=== PATIENT | male | born 1945 | race Caucasian/White ===

== ENCOUNTER 2017-04-08 17:10 | Emergency (ER) | payer MEDICARE, BC ==
[~2017-04-08] VITALS: Ht 180.3 cm; Wt 98.7 kg
[~2017-04-08 17:10] MED LIST: ADV50250 INH; ALB0.5UD IH; ALBU8.5H8 IH; CARV-49 PO; ESOM40CA30 PO; MONT10TA24 PO; SACU1TAB PO; SIMV20TA PO
[2017-04-08 17:56] LABS: BASOPHILS # (AUTO) 0.1 X10'3 (0-0.2); BASOPHILS % (AUTO) 0.8 % (0-1); EOSINOPHILS % (AUTO) 0.5 % (0-6); HEMATOCRIT 42.5 % (42.0-52.0); HEMOGLOBIN 14.4 g/dl (14.0-17.9); LYMPHOCYTES # (AUTO) 0.8 X10'3 (1.1-4.8); MEAN CORPUSCULAR HEMOGLOBIN 32.2 PG (27.0-31.0); MEAN CORPUSCULAR HGB CONC 33.9 % (33.0-36.5); MEAN CORPUSCULAR VOLUME 94.9 FL (78-98); MEAN PLATELET VOLUME 7.2 FL (7.4-10.4); MONOCYTES % (AUTO) 12.3 % (2-12); NEUTROPHILS % (AUTO) 76.4 % (42-75); PLATELET COUNT 216 X10'3 (140-440); RED BLOOD COUNT 4.48 X10'6 (4.70-6.10); RED CELL DISTRIBUTION WIDTH 13.7 % (11.5-14.5); WHITE BLOOD COUNT 7.9 X10'3 (4.5-11.0)
[2017-04-08 18:05] LABS: PARTIAL THROMBOPLASTIN TIME 27 SECONDS (22-32); PROTHROMBIN TIME 10.2 SECONDS (9.0-12.0)
[2017-04-08 18:10] LABS: ALANINE AMINOTRANSFERASE 30 U/L (12-78); ALBUMIN 3.7 G/DL (3.4-5.0); ALBUMIN/GLOBULIN RATIO 1.1 (1.1-1.5); ALKALINE PHOSPHATASE 114 IU/L (46-116); ANION GAP 9 (8-16); ASPARTATE AMINO TRANSFERASE 23 U/L (10-37); BILIRUBIN,TOTAL 0.7 MG/DL (0.1-1.0); BLOOD UREA NITROGEN 14 MG/DL (7-18); BUN/CREATININE RATIO 11.8 (5.4-32.0); CALCIUM 8.7 MG/DL (8.5-10.1); CHLORIDE 104 MMOL/L (99-107); CREATININE 1.19 MG/DL (0.60-1.10); GLUCOSE 100 MG/DL (70-104); POTASSIUM 4.3 MMOL/L (3.5-5.1); SODIUM 142 MMOL/L (135-145); TOTAL CARBON DIOXIDE 28.9 MMOL/L (24-32); TOTAL PROTEIN 7.1 G/DL (6.4-8.2); eGFR 60 ML/MIN
[2017-04-08] MEDS ORDERED: levoFLOXACIN 250mg tablet PO ONE (18:15)
[2017-04-08] MEDS ORDERED: predniSONE 20 mg tablet PO ONE (18:15)
[2017-04-08] MEDS ORDERED: ipratropium/albuterol 3ml nebule NEB ONE (18:15)
[2017-04-08] MEDS ORDERED: albuterol 2.5 MG/3 ML nebule NEB ONE (18:15)
[2017-04-08 18:30] LABS: MAGNESIUM 1.6 MG/DL (1.5-2.4)
[2017-04-08] MEDS ORDERED: LEVO500T89 PO (18:38)
[2017-04-08] MEDS ORDERED: ALB0.5UD IH (18:45)
[2017-04-08 18:58] VITALS: BP 129/74
== END 2017-04-08 18:50 | disposition home or self-care (01) ==
LOC: ER 17:12
DX: J44.1 Chronic obstructive pulmonary disease with (acute) exacerbation (principal); I50.9 Heart failure, unspecified; Z95.0 Presence of cardiac pacemaker; Z88.2 Allergy status to sulfonamides; Z88.1 Allergy status to other antibiotic agents; Z91.030 Bee allergy status
CPT/HCPCS: 36415; 71010; 80053; 83735; 83880; 84484; 85025; 85610; 85730; 93005; 94640; 94760; 99285; J7512; J7030

== ENCOUNTER 2018-11-10 09:48 | Inpatient (IN) | payer MEDICARE, BC ==
[~2018-11-10] VITALS: Ht 182.9 cm; Wt 101.8 kg
[~2018-11-10 09:48] MED LIST changes: +ATOR40TA7 PO; -ESOM40CA30 PO; +ESOM40CA49 PO; +GLUC-212 PO; -SIMV20TA PO
[2018-11-10] MEDS ORDERED: albuterol 2.5 MG/3 ML nebule NEB ONE (09:55)
[2018-11-10] MEDS ORDERED: ipratropium/albuterol 3ml nebule NEB ONE (09:55)
[2018-11-10] MEDS ORDERED: methylPREDNISolone sod succ 125mg/2ml vial IV ONE ×2 (09:55→12:30)
[2018-11-10] MEDS ORDERED: piperacillin/tazo 3.375gm/50ml 50 ML IV ONE (10:10)
[2018-11-10 10:42] LABS: BASOPHILS % (AUTO) 0.2 % (0-1); EOSINOPHILS % (AUTO) 0.1 % (0-6); HEMATOCRIT 40.1 % (42.0-52.0); HEMOGLOBIN 13.4 g/dl (14.0-17.9); LYMPHOCYTES # (AUTO) 0.4 X10'3 (1.1-4.8); LYMPHOCYTES % (AUTO) 4.7 % (21-51); MEAN CORPUSCULAR HEMOGLOBIN 31.6 PG (27.0-31.0); MEAN CORPUSCULAR HGB CONC 33.4 g/dL (33.0-36.5); MEAN CORPUSCULAR VOLUME 94.4 FL (78-98); MEAN PLATELET VOLUME 7.4 FL (7.4-10.4); MONOCYTES # (AUTO) 0.6 X10'3 (0-0.9); MONOCYTES % (AUTO) 6.9 % (2-12); NEUTROPHILS # (AUTO) 8.3 X10'3 (1.8-7.7); NEUTROPHILS % (AUTO) 88.1 % (42-75); PLATELET COUNT 267 X10'3 (140-440); RED BLOOD COUNT 4.25 X10'6 (4.70-6.10); RED CELL DISTRIBUTION WIDTH 12.8 % (11.5-14.5); WHITE BLOOD COUNT 9.4 X10'3 (4.5-11.0)
[2018-11-10 10:50] LABS: PARTIAL THROMBOPLASTIN TIME 25 SECONDS (22-32)
[2018-11-10 11:13] LABS: ALANINE AMINOTRANSFERASE 16 U/L (12-78); ALBUMIN 3.1 G/DL (3.4-5.0); ALBUMIN/GLOBULIN RATIO 0.9 (1.1-1.5); ALKALINE PHOSPHATASE 67 IU/L (46-116); ANION GAP 11 (8-16); ASPARTATE AMINO TRANSFERASE 11 U/L (10-37); BILIRUBIN,TOTAL 0.6 MG/DL (0.1-1.0); BLOOD UREA NITROGEN 21 MG/DL (7-18); BUN/CREATININE RATIO 14.9 (5.4-32.0); CALCIUM 8.8 MG/DL (8.5-10.1); CHLORIDE 108 MMOL/L (99-107); CREATININE 1.41 MG/DL (0.60-1.10); GLUCOSE 121 MG/DL (70-104); MAGNESIUM 1.4 MG/DL (1.5-2.4); POTASSIUM 4.1 MMOL/L (3.5-5.1); SODIUM 143 MMOL/L (135-145); TOTAL CARBON DIOXIDE 24.4 MMOL/L (24-32); TOTAL PROTEIN 6.4 G/DL (6.4-8.2); eGFR 49 ML/MIN
[2018-11-10] MEDS ORDERED: metoclopramide 5 mg/ml inj IV PRN (11:35)
[2018-11-10] MEDS ORDERED: potassium CL 10mEq/100ml bag 100 ML IV PRN ×2 (11:35)
[2018-11-10] MEDS ORDERED: mag hydrox/Alum hydrox/simeth 30ml oral suspension PO PRN (11:35)
[2018-11-10] MEDS ORDERED: ipratropium/albuterol 3ml nebule NEB PRN (11:35)
[2018-11-10] MEDS ORDERED: magnesium 4gm in 100ml NS 100 ML IV PRN (11:35)
[2018-11-10] MEDS ORDERED: magnesium 2GM in 50ml NS 50 ML IV PRN (11:35)
[2018-11-10] MEDS ORDERED: ondansetron/PF 4mg/2ml inj IV PRN (11:35)
[2018-11-10] MEDS ORDERED: magnesium hydroxide 30ml (MOM) UD suspension PO PRN (11:35)
[2018-11-10] MEDS ORDERED: acetaminophen 325mg tablet PO PRN ×2 (11:35)
[2018-11-10] MEDS ORDERED: potassium Cl 20 mEq SR tablet PO PRN ×2 (11:35)
[2018-11-10] MEDS ORDERED: bisacodyl 10mg suppository rectal RC PRN (11:35)
[2018-11-10] MEDS ORDERED: CARV-50 PO (12:36)
[2018-11-10] MEDS ORDERED: CYAN-51 PO (12:39)
[2018-11-10] MEDS ORDERED: SILD100T PO (12:39)
[2018-11-10] MEDS ORDERED: ASPI-1265 PO (12:39)
[2018-11-10] MEDS ORDERED: CHOL100044 PO (12:39)
[2018-11-10] MEDS ORDERED: TIOT18CA3 INH (12:39)
[2018-11-10 13:10] VITALS: BP 94/47
[2018-11-10] MEDS: normal saline 1000ml 1,000 ML IV SCH ×2 (13:53→21:32)
[2018-11-10] MEDS ORDERED: methylPREDNISolone sod succ 125mg/2ml vial IV SCH ×2 (14:00→18:30)
[2018-11-10] MEDS: ipratropium/albuterol 3ml nebule NEB SCH ×3 (14:16→22:20)
[2018-11-10] MEDS: piperacillin/tazo 3.375gm/50ml 50 ML IV SCH ×2 (16:37→23:33)
[2018-11-10] MEDS: magnesium Cl slow-release 64mg tablet PO PRN ×2 (17:53→22:08)
[2018-11-10] MEDS: HYDROcodone/acetaminophen 5mg/325mg tablet PO PRN (17:54)
--- NOTE | 2018-11-10 18:00 | NUR ---
Problems reprioritized. Patient report given, questions answered & plan of care reviewed with
[2018-11-10 18:50] VITALS: BP 98/47
[2018-11-10] MEDS: sacubitril/valsartan 24mg-26mg tablet PO SCH (20:00)
[2018-11-10] MEDS: methylPREDNISolone sod succ/PF 40mg inj. IV SCH (20:11)
[2018-11-10] MEDS: heparin, porcine 5000 units/ml vial SQ SCH (20:12)
[2018-11-10] MEDS ORDERED: temazepam 15mg capsule PO PRN (21:00)
[2018-11-10] MEDS: carVEDilol 12.5mg tablet PO SCH (21:00)
[2018-11-10] MEDS: atorvastatin 20mg tablet PO SCH (22:08)
[2018-11-10] MEDS: montelukast 10mg tablet PO SCH (22:08)
[2018-11-10] MEDS ORDERED: furosemide 40mg/4ml inj IV ONE (22:45)
[2018-11-10 23:11] LABS: ABG BASE EXCESS -0.5 mmol/L (-2.0-3.0); ABG HCO3 24.4 mmol/L (22.0-26.0); ABG OXYGEN SATURATION 93.3 % (95-98); ABG PCO2 (T) 41.3 mmHg (35.0-45.0); ABG PO2 (T) 68.7 mmHg (83-108); ALLEN'S TEST Positive; FCOHb 0.4 % (0.5-1.5); FLOW 4 L/min; FMetHb 0.1 % (0.3-1.12); FO2Hb 92.8 % (94-100); RESPIRATORY RATE (OBSERVED) 18 b/min; TOTAL HEMOGLOBIN 12.9 G/dl (14.0-18.0)
[2018-11-11] VITALS: BP 113/52
[2018-11-11] MEDS: methylPREDNISolone sod succ/PF 40mg inj. IV SCH ×4 (02:45→21:04)
[2018-11-11 04:57] LABS: MEAN PLATELET VOLUME 7.4 FL (7.4-10.4)
[2018-11-11 05:00] LABS: HEMOGLOBIN 12.2 g/dl (14.0-17.9); MEAN CORPUSCULAR HEMOGLOBIN 31.6 PG (27.0-31.0); MEAN CORPUSCULAR HGB CONC 33.8 g/dL (33.0-36.5); MEAN CORPUSCULAR VOLUME 93.5 FL (78-98); PLATELET COUNT 246 X10'3 (140-440); RED BLOOD COUNT 3.85 X10'6 (4.70-6.10); WHITE BLOOD COUNT 11.8 X10'3 (4.5-11.0)
[2018-11-11 05:14] LABS: ALANINE AMINOTRANSFERASE 16 U/L (12-78); ALBUMIN 2.4 G/DL (3.4-5.0); ALBUMIN/GLOBULIN RATIO 0.7 (1.1-1.5); ALKALINE PHOSPHATASE 38 IU/L (46-116); ANION GAP 9 (8-16); ASPARTATE AMINO TRANSFERASE 8 U/L (10-37); BILIRUBIN,TOTAL 0.6 MG/DL (0.1-1.0); BLOOD UREA NITROGEN 30 MG/DL (7-18); BUN/CREATININE RATIO 17.4 (5.4-32.0); CALCIUM 8.2 MG/DL (8.5-10.1); CHLORIDE 104 MMOL/L (99-107); CREATININE 1.72 MG/DL (0.60-1.10); GLUCOSE 127 MG/DL (70-104); MAGNESIUM 1.4 MG/DL (1.5-2.4); POTASSIUM 4.9 MMOL/L (3.5-5.1); SODIUM 140 MMOL/L (135-145); TOTAL PROTEIN 5.9 G/DL (6.4-8.2); eGFR 39 ML/MIN
[2018-11-11 06:42] LABS: TOTAL CELLS COUNTED 100
[2018-11-11 06:43] LABS: PLATELET ESTIMATE NORMAL
--- NOTE | 2018-11-11 06:43 | NUR ---
Patient in room RBIGID 350. I have received report from Baldev CHASE and had the opportunity to ask questions and assume patient care.
[2018-11-11 06:44] LABS: TOXIC VACUOLATION FEW
--- NOTE | 2018-11-11 06:44 | NUR ---
Problems reprioritized. Patient report given, questions answered & plan of care reviewed with PEG. Addendum: 11/11/18 at 0644 by Mg Pablo RN Amended: Links added.
[2018-11-11] MEDS: ipratropium/albuterol 3ml nebule NEB SCH ×5 (07:13→23:06)
[2018-11-11 07:44] VITALS: BP 123/68
[2018-11-11] MEDS: K and/or MAG REPLACEMENT MC SCH (08:00)
[2018-11-11] MEDS: normal saline 1000ml 1,000 ML IV SCH (08:33)
[2018-11-11] MEDS: pantoprazole 40mg Tablet.DR PO SCH (08:34)
[2018-11-11] MEDS: aspirin 81mg tab.chew PO SCH (08:34)
[2018-11-11] MEDS: carvedilol 6.25mg tablet PO SCH (08:34)
[2018-11-11] MEDS: heparin, porcine 5000 units/ml vial SQ SCH ×2 (08:37→21:04)
[2018-11-11] MEDS: piperacillin/tazo 3.375gm/50ml 50 ML IV SCH ×2 (09:13→16:10)
[2018-11-11] MEDS ORDERED: furosemide 20 MG/2 ML vial IV ONE (12:05)
[2018-11-11] MEDS: sacubitril/valsartan 24mg-26mg tablet PO SCH ×2 (12:34→21:05)
[2018-11-11] MEDS: magnesium Cl slow-release 64mg tablet PO PRN (16:08)
--- NOTE | 2018-11-11 18:30 | NUR ---
shift change report given by RENA Valdez; pt in bed with no c/o's or requests offered at this time
[2018-11-11 19:30] VITALS: BP 103/58
[2018-11-11] MEDS: lactobacillus rhamnosus 10,000 MMU CELLS/CAPSULE PO SCH (21:03)
[2018-11-11] MEDS: montelukast 10mg tablet PO SCH (21:03)
[2018-11-11] MEDS: atorvastatin 20mg tablet PO SCH (21:03)
[2018-11-11] MEDS: HYDROcodone/acetaminophen 5mg/325mg tablet PO PRN (21:37)
[2018-11-11 23:00] VITALS: BP 97/62
[2018-11-11] MEDS: carVEDilol 12.5mg tablet PO SCH (23:00)
[2018-11-12] MEDS: piperacillin/tazo 3.375gm/50ml 50 ML IV SCH ×2 (00:38→08:47)
[2018-11-12] MEDS: methylPREDNISolone sod succ/PF 40mg inj. IV SCH ×2 (02:47→08:45)
[2018-11-12 04:59] LABS: BASOPHILS % (AUTO) 0.1 % (0-1); EOSINOPHILS % (AUTO) 0.2 % (0-6); HEMATOCRIT 36.1 % (42.0-52.0); HEMOGLOBIN 11.9 g/dl (14.0-17.9); LYMPHOCYTES # (AUTO) 0.5 X10'3 (1.1-4.8); MEAN CORPUSCULAR VOLUME 93.9 FL (78-98); MONOCYTES # (AUTO) 0.7 X10'3 (0-0.9); MONOCYTES % (AUTO) 4.4 % (2-12); NEUTROPHILS # (AUTO) 15.6 X10'3 (1.8-7.7); NEUTROPHILS % (AUTO) 92.3 % (42-75); PLATELET COUNT 266 X10'3 (140-440); RED BLOOD COUNT 3.84 X10'6 (4.70-6.10); RED CELL DISTRIBUTION WIDTH 13.3 % (11.5-14.5); WHITE BLOOD COUNT 16.9 X10'3 (4.5-11.0)
[2018-11-12 05:19] LABS: ALANINE AMINOTRANSFERASE 16 U/L (12-78); ALBUMIN 2.2 G/DL (3.4-5.0); ALBUMIN/GLOBULIN RATIO 0.6 (1.1-1.5); ALKALINE PHOSPHATASE 47 IU/L (46-116); ANION GAP 9 (8-16); ASPARTATE AMINO TRANSFERASE 11 U/L (10-37); BILIRUBIN,TOTAL 0.4 MG/DL (0.1-1.0); BLOOD UREA NITROGEN 41 MG/DL (7-18); BUN/CREATININE RATIO 26.1 (5.4-32.0); CALCIUM 8.4 MG/DL (8.5-10.1); CHLORIDE 103 MMOL/L (99-107); CREATININE 1.57 MG/DL (0.60-1.10); GLUCOSE 128 MG/DL (70-104); MAGNESIUM 1.8 MG/DL (1.5-2.4); PHOSPHORUS 3.3 MG/DL (2.3-4.5); SODIUM 140 MMOL/L (135-145); TOTAL CARBON DIOXIDE 28.2 MMOL/L (24-32); TOTAL PROTEIN 6.2 G/DL (6.4-8.2); eGFR 44 ML/MIN
[2018-11-12 05:56] LABS: PLATELET ESTIMATE NORMAL; TOTAL CELLS COUNTED 100
--- NOTE | 2018-11-12 06:45 | NUR ---
checked q1hr; slept at intervals with no acute distress; pt becomes SOB on exertion or when having a long conversation; no further changes from earlier notes; shift change report given to RENA Valdez
[2018-11-12 07:00] VITALS: BP 104/65
--- NOTE | 2018-11-12 07:01 | NUR ---
Patient in room [facility]IGID 350. I have received report from Pat RN and had the opportunity to ask questions and assume patient care.
[2018-11-12] MEDS: ipratropium/albuterol 3ml nebule NEB SCH ×5 (07:23→23:00)
--- NOTE | 2018-11-12 07:53 | NUR ---
Received a phone call from microbiology lab reporting positive blood culture left hand shows haemophilus influenzae same as respiratory culture. Jose Rodriguez notified and Dr. Buck notified via paging system
[2018-11-12] MEDS: K and/or MAG REPLACEMENT MC SCH (08:00)
[2018-11-12] MEDS: pantoprazole 40mg Tablet.DR PO SCH (08:52)
[2018-11-12] MEDS: aspirin 81mg tab.chew PO SCH (08:56)
[2018-11-12] MEDS: carvedilol 6.25mg tablet PO SCH (08:56)
[2018-11-12] MEDS: lactobacillus rhamnosus 10,000 MMU CELLS/CAPSULE PO SCH ×2 (08:56→20:56)
[2018-11-12] MEDS: heparin, porcine 5000 units/ml vial SQ SCH ×2 (08:57→20:57)
[2018-11-12] MEDS: furosemide 20 MG/2 ML vial IV SCH (10:53)
[2018-11-12 11:00] VITALS: BP 94/52
[2018-11-12 12:35] VITALS: BP 105/56
[2018-11-12] MEDS: sacubitril/valsartan 24mg-26mg tablet PO SCH ×2 (12:46→20:55)
[2018-11-12] MEDS: CefTRIAXone 2gm/D5W 50ml 50 ML IV SCH (12:46)
--- NOTE | 2018-11-12 18:52 | NUR ---
Problems reprioritized. Patient report given, questions answered & plan of care reviewed with Monserrat CHASE.
--- NOTE | 2018-11-12 18:53 | NUR ---
Patient in room [facility] 350. I have received report from PEG CHASE and had the opportunity to ask questions and assume patient care.
[2018-11-12 20:00] VITALS: BP 126/68
[2018-11-12] MEDS: carVEDilol 12.5mg tablet PO SCH (20:56)
[2018-11-12] MEDS: montelukast 10mg tablet PO SCH (20:56)
[2018-11-12] MEDS: atorvastatin 20mg tablet PO SCH (20:56)
[2018-11-13] VITALS: BP 147/73
[2018-11-13 05:17] LABS: BASOPHILS % (AUTO) 0.1 % (0-1); EOSINOPHILS % (AUTO) 0 % (0-6); HEMATOCRIT 35.3 % (42.0-52.0); HEMOGLOBIN 11.7 g/dl (14.0-17.9); LYMPHOCYTES # (AUTO) 0.5 X10'3 (1.1-4.8); LYMPHOCYTES % (AUTO) 2.7 % (21-51); MEAN CORPUSCULAR HEMOGLOBIN 31.2 PG (27.0-31.0); MEAN CORPUSCULAR HGB CONC 33.1 g/dL (33.0-36.5); MEAN CORPUSCULAR VOLUME 94.5 FL (78-98); MONOCYTES # (AUTO) 0.8 X10'3 (0-0.9); MONOCYTES % (AUTO) 4.5 % (2-12); NEUTROPHILS # (AUTO) 17.1 X10'3 (1.8-7.7); NEUTROPHILS % (AUTO) 92.7 % (42-75); PLATELET COUNT 266 X10'3 (140-440); RED BLOOD COUNT 3.73 X10'6 (4.70-6.10); RED CELL DISTRIBUTION WIDTH 13.4 % (11.5-14.5); WHITE BLOOD COUNT 18.4 X10'3 (4.5-11.0)
[2018-11-13 05:32] LABS: ALANINE AMINOTRANSFERASE 17 U/L (12-78); ALBUMIN/GLOBULIN RATIO 0.5 (1.1-1.5); ALKALINE PHOSPHATASE 48 IU/L (46-116); ANION GAP 7 (8-16); ASPARTATE AMINO TRANSFERASE 8 U/L (10-37); BILIRUBIN,TOTAL 0.2 MG/DL (0.1-1.0); BLOOD UREA NITROGEN 39 MG/DL (7-18); BUN/CREATININE RATIO 28.1 (5.4-32.0); CALCIUM 8.6 MG/DL (8.5-10.1); CHLORIDE 106 MMOL/L (99-107); CREATININE 1.39 MG/DL (0.60-1.10); GLUCOSE 145 MG/DL (70-104); MAGNESIUM 2.2 MG/DL (1.5-2.4); PHOSPHORUS 2.5 MG/DL (2.3-4.5); POTASSIUM 4.1 MMOL/L (3.5-5.1); SODIUM 141 MMOL/L (135-145); TOTAL CARBON DIOXIDE 27.8 MMOL/L (24-32); eGFR 50 ML/MIN
--- NOTE | 2018-11-13 06:18 | NUR ---
Problems reprioritized. Patient report given, questions answered & plan of care reviewed with ARLETTE CHASE.
--- NOTE | 2018-11-13 06:20 | NUR ---
Patient in room [facility] 350. I have received report from RENA German and had the opportunity to ask questions and assume patient care.
[2018-11-13 07:24] VITALS: BP 127/59
[2018-11-13 07:24] LABS: PLATELET ESTIMATE NORMAL; TOTAL CELLS COUNTED 100
[2018-11-13] MEDS: ipratropium/albuterol 3ml nebule NEB SCH ×5 (07:57→23:14)
[2018-11-13] MEDS: K and/or MAG REPLACEMENT MC SCH (08:00)
[2018-11-13] MEDS: furosemide 20 MG/2 ML vial IV SCH (08:10)
[2018-11-13] MEDS: CefTRIAXone 2gm/D5W 50ml 50 ML IV SCH (08:11)
[2018-11-13] MEDS: carvedilol 6.25mg tablet PO SCH (08:12)
[2018-11-13] MEDS: aspirin 81mg tab.chew PO SCH (08:12)
[2018-11-13] MEDS: pantoprazole 40mg Tablet.DR PO SCH (08:12)
[2018-11-13] MEDS: lactobacillus rhamnosus 10,000 MMU CELLS/CAPSULE PO SCH ×2 (08:12→20:30)
[2018-11-13] MEDS: heparin, porcine 5000 units/ml vial SQ SCH ×2 (08:15→20:30)
[2018-11-13 11:38] VITALS: BP 131/60
[2018-11-13] MEDS ORDERED: sacubitril/valsartan 24mg-26mg tablet PO ONE (11:50)
--- NOTE | 2018-11-13 18:00 | NUR ---
Problems reprioritized. Patient report given, questions answered & plan of care reviewed with RENA German.
--- NOTE | 2018-11-13 18:30 | NUR ---
Patient in room [facility] 350. I have received report from ARLETTE CHASE and had the opportunity to ask questions and assume patient care.
[2018-11-13 20:00] VITALS: BP 112/67
[2018-11-13] MEDS: carVEDilol 12.5mg tablet PO SCH (20:30)
[2018-11-13] MEDS: montelukast 10mg tablet PO SCH (20:30)
[2018-11-13] MEDS: atorvastatin 20mg tablet PO SCH (20:30)
[2018-11-13] MEDS: sacubitril/valsartan 24mg-26mg tablet PO SCH (23:40)
[2018-11-14] VITALS: BP 127/65
[2018-11-14 05:54] LABS: BASOPHILS % (AUTO) 0 % (0-1); MEAN CORPUSCULAR HEMOGLOBIN 31.2 PG (27.0-31.0); MEAN PLATELET VOLUME 8.1 FL (7.4-10.4)
[2018-11-14 05:55] LABS: EOSINOPHILS % (AUTO) 0 % (0-6); HEMATOCRIT 34.9 % (42.0-52.0); HEMOGLOBIN 11.6 g/dl (14.0-17.9); LYMPHOCYTES % (AUTO) 5.8 % (21-51); MEAN CORPUSCULAR HGB CONC 33.3 g/dL (33.0-36.5); MEAN CORPUSCULAR VOLUME 93.8 FL (78-98); MONOCYTES # (AUTO) 1.5 X10'3 (0-0.9); MONOCYTES % (AUTO) 8.3 % (2-12); NEUTROPHILS # (AUTO) 15.7 X10'3 (1.8-7.7); NEUTROPHILS % (AUTO) 85.9 % (42-75); PLATELET COUNT 263 X10'3 (140-440); RED BLOOD COUNT 3.72 X10'6 (4.70-6.10); RED CELL DISTRIBUTION WIDTH 13.7 % (11.5-14.5); WHITE BLOOD COUNT 18.2 X10'3 (4.5-11.0)
--- NOTE | 2018-11-14 06:00 | NUR ---
Problems reprioritized. Patient report given, questions answered & plan of care reviewed with MYAH CHASE.
[2018-11-14 06:17] LABS: ALANINE AMINOTRANSFERASE 20 U/L (12-78); ALBUMIN 2.1 G/DL (3.4-5.0); ALBUMIN/GLOBULIN RATIO 0.6 (1.1-1.5); ALKALINE PHOSPHATASE 56 IU/L (46-116); ANION GAP 5 (8-16); ASPARTATE AMINO TRANSFERASE 12 U/L (10-37); BILIRUBIN,TOTAL 0.2 MG/DL (0.1-1.0); BLOOD UREA NITROGEN 42 MG/DL (7-18); BUN/CREATININE RATIO 32.6 (5.4-32.0); CALCIUM 8.6 MG/DL (8.5-10.1); CHLORIDE 108 MMOL/L (99-107); CREATININE 1.29 MG/DL (0.60-1.10); GLUCOSE 86 MG/DL (70-104); MAGNESIUM 2.1 MG/DL (1.5-2.4); PHOSPHORUS 2.7 MG/DL (2.3-4.5); POTASSIUM 4.1 MMOL/L (3.5-5.1); SODIUM 144 MMOL/L (135-145); TOTAL CARBON DIOXIDE 31.2 MMOL/L (24-32); TOTAL PROTEIN 5.8 G/DL (6.4-8.2); eGFR 55 ML/MIN
[2018-11-14 06:50] LABS: PLATELET ESTIMATE NORMAL; TOTAL CELLS COUNTED 100
[2018-11-14] MEDS: ipratropium/albuterol 3ml nebule NEB SCH ×5 (07:12→23:00)
[2018-11-14 07:26] VITALS: BP 116/56
[2018-11-14] MEDS: heparin, porcine 5000 units/ml vial SQ SCH ×2 (07:37→20:31)
[2018-11-14] MEDS: carvedilol 6.25mg tablet PO SCH (07:38)
[2018-11-14] MEDS: furosemide 20 MG/2 ML vial IV SCH (07:38)
[2018-11-14] MEDS: aspirin 81mg tab.chew PO SCH (07:38)
[2018-11-14] MEDS: CefTRIAXone 2gm/D5W 50ml 50 ML IV SCH (07:38)
[2018-11-14] MEDS: lactobacillus rhamnosus 10,000 MMU CELLS/CAPSULE PO SCH ×2 (07:38→20:27)
[2018-11-14] MEDS: pantoprazole 40mg Tablet.DR PO SCH (07:38)
[2018-11-14] MEDS: K and/or MAG REPLACEMENT MC SCH (08:00)
[2018-11-14 11:11] VITALS: BP 119/53
[2018-11-14] MEDS: sacubitril/valsartan 24mg-26mg tablet PO SCH ×2 (11:43→22:46)
[2018-11-14] MEDS: docusate sod 100mg capsule PO SCH ×2 (12:22→20:29)
--- NOTE | 2018-11-14 18:20 | NUR ---
Problems reprioritized. Patient report given, questions answered & plan of care reviewed with RENA Mei.
--- NOTE | 2018-11-14 18:30 | NUR ---
Patient in room [facility] 350. I have received report from MYAH CHASE and had the opportunity to ask questions and assume patient care.
[2018-11-14 20:00] VITALS: BP 129/62
[2018-11-14] MEDS: montelukast 10mg tablet PO SCH (20:27)
[2018-11-14] MEDS: carVEDilol 12.5mg tablet PO SCH (20:28)
[2018-11-14] MEDS: atorvastatin 20mg tablet PO SCH (20:29)
[2018-11-15] VITALS: BP 116/53
[2018-11-15 05:48] LABS: BASOPHILS % (AUTO) 0.2 % (0-1); EOSINOPHILS # (AUTO) 0.1 X10'3 (0-0.9); EOSINOPHILS % (AUTO) 0.5 % (0-6); HEMATOCRIT 36.5 % (42.0-52.0); HEMOGLOBIN 12.1 g/dl (14.0-17.9); LYMPHOCYTES # (AUTO) 1.1 X10'3 (1.1-4.8); LYMPHOCYTES % (AUTO) 11.2 % (21-51); MEAN CORPUSCULAR HEMOGLOBIN 31.2 PG (27.0-31.0); MEAN CORPUSCULAR HGB CONC 33.2 g/dL (33.0-36.5); MEAN CORPUSCULAR VOLUME 93.9 FL (78-98); MEAN PLATELET VOLUME 8.2 FL (7.4-10.4); MONOCYTES # (AUTO) 1.8 X10'3 (0-0.9); MONOCYTES % (AUTO) 17.5 % (2-12); NEUTROPHILS # (AUTO) 7.2 X10'3 (1.8-7.7); NEUTROPHILS % (AUTO) 70.6 % (42-75); PLATELET COUNT 255 X10'3 (140-440); RED BLOOD COUNT 3.89 X10'6 (4.70-6.10); RED CELL DISTRIBUTION WIDTH 13.8 % (11.5-14.5); WHITE BLOOD COUNT 10.2 X10'3 (4.5-11.0)
[2018-11-15 06:09] LABS: ALANINE AMINOTRANSFERASE 18 U/L (12-78); ALBUMIN/GLOBULIN RATIO 0.5 (1.1-1.5); ALKALINE PHOSPHATASE 53 IU/L (46-116); ANION GAP 3 (8-16); ASPARTATE AMINO TRANSFERASE 11 U/L (10-37); BILIRUBIN,TOTAL 0.3 MG/DL (0.1-1.0); BLOOD UREA NITROGEN 35 MG/DL (7-18); BUN/CREATININE RATIO 30.2 (5.4-32.0); CALCIUM 8.2 MG/DL (8.5-10.1); CHLORIDE 108 MMOL/L (99-107); CREATININE 1.16 MG/DL (0.60-1.10); GLUCOSE 91 MG/DL (70-104); MAGNESIUM 2.1 MG/DL (1.5-2.4); PHOSPHORUS 3.5 MG/DL (2.3-4.5); POTASSIUM 4.2 MMOL/L (3.5-5.1); SODIUM 143 MMOL/L (135-145); TOTAL CARBON DIOXIDE 31.7 MMOL/L (24-32); TOTAL PROTEIN 5.7 G/DL (6.4-8.2); eGFR 62 ML/MIN
--- NOTE | 2018-11-15 06:12 | NUR ---
Problems reprioritized. Patient report given, questions answered & plan of care reviewed with MYAH CHASE.
[2018-11-15 07:06] LABS: NUCLEATED RED BLOOD CELLS 1 /100WBC (0-0); PLATELET ESTIMATE NORMAL; TOTAL CELLS COUNTED 100; TOXIC GRANULATION 2+
[2018-11-15 07:10] VITALS: BP 124/61
[2018-11-15] MEDS: ipratropium/albuterol 3ml nebule NEB SCH ×2 (07:11→11:13)
[2018-11-15] MEDS: K and/or MAG REPLACEMENT MC SCH (08:00)
[2018-11-15] MEDS: carvedilol 6.25mg tablet PO SCH (09:05)
[2018-11-15] MEDS: aspirin 81mg tab.chew PO SCH (09:08)
[2018-11-15] MEDS: docusate sod 100mg capsule PO SCH (09:08)
[2018-11-15] MEDS: lactobacillus rhamnosus 10,000 MMU CELLS/CAPSULE PO SCH (09:08)
[2018-11-15] MEDS: carVEDilol 12.5mg tablet PO SCH (09:08)
[2018-11-15] MEDS: pantoprazole 40mg Tablet.DR PO SCH (09:09)
[2018-11-15] MEDS: CefTRIAXone 2gm/D5W 50ml 50 ML IV SCH (09:09)
[2018-11-15] MEDS: heparin, porcine 5000 units/ml vial SQ SCH (09:10)
[2018-11-15] MEDS: furosemide 20 MG/2 ML vial IV SCH (09:10)
[2018-11-15] MEDS ORDERED: LEVO750T21 PO (11:32)
[2018-11-15] MEDS ORDERED: FURO20TA4 PO (11:35)
--- NOTE | 2018-11-15 11:45 | NUR ---
O2 Sat at rest on room air:92% If below 89%: Recovery O2 Sat at rest on ___LPM:___%:___% via (mask/nasal cannula, etc..) No further documentation is necessary. If O2 Sat did not drop below 89% on room air,ambulate patient on room air. O2 Sat while ambulating on room air:90% Recovery O2 Sat while ambulating on ___LPM:___% .. No further documentation is necessary. If patient does not drop below 89% while ambulating, he/she does not qualify for home O2. patient maintained 90% while ambulating and did not drop. will notify case management and MD about non-qualification for home O2
[2018-11-15 11:48] VITALS: BP 120/53
[2018-11-15] MEDS: sacubitril/valsartan 24mg-26mg tablet PO SCH (11:56)
--- NOTE | 2018-11-15 14:38 | NUR ---
Patient discharged home with . Stable and appropriate. All belongings taken from room. IV removed and nurse monitoring removed. New prescriptions called into [facility] in [place]. Discharge instructions given and reviewed with patient. All questions answered.
== END 2018-11-15 14:42 | disposition home or self-care (01) | DRG 871 ==
LOC: ER 09:48 → SUR 3N 13:16 → CMPBEDREQ 19:00
PROVIDERS: ADMIT Family Medicine; ATTEND Family Medicine
DX: A41.3 Sepsis due to Hemophilus influenzae (principal); I50.23 Acute on chronic systolic (congestive) heart failure; E43 Unspecified severe protein-calorie malnutrition; J14 Pneumonia due to Hemophilus influenzae; J96.21 Acute and chronic respiratory failure with hypoxia; J44.1 Chronic obstructive pulmonary disease with (acute) exacerbation; I13.0 Hypertensive heart and chronic kidney disease with heart failure and stage 1 through stage 4 chronic kidney disease, or unspecified chronic kidney disease; J44.0 Chronic obstructive pulmonary disease with (acute) lower respiratory infection; N17.9 Acute kidney failure, unspecified; E83.51 Hypocalcemia; I25.10 Atherosclerotic heart disease of native coronary artery without angina pectoris; I25.5 Ischemic cardiomyopathy; N18.9 Chronic kidney disease, unspecified; Z80.3 Family history of malignant neoplasm of breast; Z80.42 Family history of malignant neoplasm of prostate; Z87.891 Personal history of nicotine dependence; Z88.1 Allergy status to other antibiotic agents; Z95.810 Presence of automatic (implantable) cardiac defibrillator; Z99.81 Dependence on supplemental oxygen; Z68.30 Body mass index [BMI] 30.0-30.9, adult
CPT/HCPCS: 36415; 36600; 71045; 80053; 82803; 83605; 83735; 83880; 84100; 84145; 84484; 85018; 85025; 85610; 85730; 87040; 87070; 87077; 87081; 87185; 93005; 94640; 94667; 94668; 94760; 96365; 96375; 99285; G0378; J0696; J1644; J1940; J2543; J2920; J2930; J7030

== ENCOUNTER 2019-08-12 07:58 | Inpatient (IN) | payer MEDICARE, BC ==
[~2019-08-12] VITALS: Ht 180.3 cm; Wt 103.2 kg
[~2019-08-12 07:58] MED LIST changes: +ASPI-1265 PO; +CARV-50 PO; +CHOL100044 PO; +CYAN-51 PO; +FURO20TA4 PO; -MONT10TA24 PO; +MONT10TA26 PO; +SILD100T PO; +TIOT18CA3 INH
[2019-08-12] MEDS ORDERED: acetaminophen 325mg tablet PO ONE (08:20)
[2019-08-12] MEDS ORDERED: dexamethasone sod phosphate 10mg/ml inj IV STA (08:28)
[2019-08-12] MEDS ORDERED: ipratropium/albuterol 3ml nebule NEB ONE (08:30)
[2019-08-12 08:37] LABS: BASOPHILS % (AUTO) 0.3 % (0-1); EOSINOPHILS % (AUTO) 0.2 % (0-6); HEMATOCRIT 37.3 % (42.0-52.0); HEMOGLOBIN 12.4 g/dl (14.0-17.9); LYMPHOCYTES # (AUTO) 0.3 X10'3 (1.1-4.8); MEAN CORPUSCULAR HGB CONC 33.3 g/dL (33.0-36.5); MEAN CORPUSCULAR VOLUME 92.9 FL (78-98); MONOCYTES # (AUTO) 0.7 X10'3 (0-0.9); MONOCYTES % (AUTO) 9.7 % (2-12); NEUTROPHILS # (AUTO) 6.6 X10'3 (1.8-7.7); NEUTROPHILS % (AUTO) 85.8 % (42-75); PLATELET COUNT 255 X10'3 (140-440); RED BLOOD COUNT 4.02 X10'6 (4.70-6.10); RED CELL DISTRIBUTION WIDTH 13.8 % (11.5-14.5); WHITE BLOOD COUNT 7.7 X10'3 (4.5-11.0)
[2019-08-12 09:02] LABS: ALANINE AMINOTRANSFERASE 18 U/L (12-78); ALBUMIN/GLOBULIN RATIO 1.1 (1.1-1.5); ALKALINE PHOSPHATASE 58 IU/L (46-116); ANION GAP 5 (8-16); ASPARTATE AMINO TRANSFERASE 17 U/L (10-37); BILIRUBIN,TOTAL 0.6 MG/DL (0.1-1.0); BLOOD UREA NITROGEN 20 MG/DL (7-18); BUN/CREATININE RATIO 13.1 (5.4-32.0); CALCIUM 8.2 MG/DL (8.5-10.1); CHLORIDE 111 MMOL/L (99-107); CREATININE 1.53 MG/DL (0.60-1.10); GLUCOSE 110 MG/DL (70-104); SODIUM 145 MMOL/L (135-145); TOTAL CARBON DIOXIDE 29.4 MMOL/L (24-32); TOTAL PROTEIN 5.7 G/DL (6.4-8.2); eGFR 45 ML/MIN
[2019-08-12] MEDS ORDERED: DOXYCYCLINE 100MG CAPSULE PO STA (09:02)
[2019-08-12] MEDS ORDERED: CefTRIAXone 2gm/D5W 50ml 50 ML IV ONE (09:05)
[2019-08-12] MEDS ORDERED: potassium CL 10mEq/100ml bag 100 ML IV PRN ×2 (09:25)
[2019-08-12] MEDS ORDERED: potassium Cl 20 mEq SR tablet PO PRN ×2 (09:25)
[2019-08-12] MEDS ORDERED: magnesium Cl slow-release 64mg tablet PO PRN (09:25)
[2019-08-12] MEDS ORDERED: mag hydrox/Alum hydrox/simeth 30ml oral suspension PO PRN (09:25)
[2019-08-12] MEDS ORDERED: HYDROcodone/acetaminophen 5mg/325mg tablet PO PRN (09:25)
[2019-08-12] MEDS ORDERED: metoclopramide 5 mg/ml inj IV PRN (09:25)
[2019-08-12] MEDS ORDERED: ipratropium/albuterol 3ml nebule NEB PRN (09:25)
[2019-08-12] MEDS ORDERED: HYDROcodone/acetaminophen 10/325mg tab PO PRN (09:25)
[2019-08-12] MEDS ORDERED: magnesium hydroxide 30ml (MOM) UD suspension PO PRN (09:25)
[2019-08-12] MEDS ORDERED: acetaminophen 325mg tablet PO PRN ×2 (09:25)
[2019-08-12] MEDS ORDERED: magnesium 4gm in 100ml NS 100 ML IV PRN (09:25)
[2019-08-12] MEDS ORDERED: bisacodyl 10mg suppository rectal RC PRN (09:25)
[2019-08-12] MEDS ORDERED: ondansetron/PF 4mg/2ml inj IV PRN (09:25)
[2019-08-12] MEDS ORDERED: magnesium 2GM in 50ml NS 50 ML IV PRN (09:25)
[2019-08-12] MEDS: normal saline 1000ml 1,000 ML IV SCH ×2 (10:16→20:18)
[2019-08-12] MEDS ORDERED: METO-539 PO (10:44)
[2019-08-12] MEDS ORDERED: FLUT1BLS10 INH (10:44)
[2019-08-12 11:08] LABS: CLARITY,URINE CLEAR (Clear); COLOR,URINE YELLOW (Yellow); GLUCOSE, URINE NEGATIVE (Neg); KETONES,URINE NEGATIVE (Neg); LEUKOCYTE ESTERASE ,URINE NEGATIVE (Neg); NITRITES, URINE NEGATIVE (Neg); OCCULT BLOOD,URINE NEGATIVE (Neg); PROTEIN,URINE TRACE mg/dl (Neg); UROBILINOGEN,URINE 0.2 E.U/dL (0.2-1.0)
[2019-08-12 11:11] LABS: UA COLLECTION TYPE URINAL
[2019-08-12 11:16] LABS: BACTERIA,URINE FEW /HPF (Neg); HYALINE CASTS 0-3 /LPF (NEGATIVE); MUCUS STRANDS FEW /LPF (Neg); RBC,URINE NONE SEEN /HPF (0-2); SQUAMOUS EPITHELIAL CELL,UR FEW /LPF (FEW); WBC,URINE 0-4 /HPF (0-4)
[2019-08-12] MEDS: ipratropium/albuterol 3ml nebule NEB SCH ×4 (11:47→23:29)
[2019-08-12] MEDS ORDERED: albuterol 2.5 MG/3 ML nebule NEB PRN (12:15)
[2019-08-12 12:45] VITALS: BP 147/86
[2019-08-12] MEDS: metoprolol succinate 25mg (24-HOUR) SR. Tablet PO SCH (14:22)
[2019-08-12 15:00] VITALS: BP 136/79
[2019-08-12] MEDS: DOXYCYCLINE 100MG CAPSULE PO SCH (17:45)
[2019-08-12 18:00] VITALS: BP 147/89
--- NOTE | 2019-08-12 18:00 | NUR ---
Patient in room PCU 3016. I have received report from RENA Quick and had the opportunity to ask questions and assume patient care.
--- NOTE | 2019-08-12 18:42 | NUR ---
Problems reprioritized. Patient report given, questions answered & plan of care reviewed with RENA Chen.
[2019-08-12] MEDS: lactobacillus rhamnosus 10,000 MMU CELLS/CAPSULE PO SCH (19:18)
[2019-08-12] MEDS: sacubitril/valsartan 24mg-26mg tablet PO SCH (19:19)
[2019-08-12] MEDS: budesonide 0.5mg/2ml UD nebule IH SCH (19:31)
[2019-08-12] MEDS: K and/or MAG REPLACEMENT MC SCH (19:39)
[2019-08-12] MEDS: montelukast 10mg tablet PO SCH (20:13)
[2019-08-12] MEDS: atorvastatin 20mg tablet PO SCH (20:14)
[2019-08-12] MEDS ORDERED: temazepam 15mg capsule PO PRN (21:00)
[2019-08-12 22:00] VITALS: BP 141/90
[2019-08-13 02:00] VITALS: BP 139/87
[2019-08-13 05:16] LABS: BASOPHILS % (AUTO) 0 % (0-1); EOSINOPHILS % (AUTO) 0 % (0-6); HEMATOCRIT 34.2 % (42.0-52.0); HEMOGLOBIN 11.4 g/dl (14.0-17.9); LYMPHOCYTES # (AUTO) 0.7 X10'3 (1.1-4.8); LYMPHOCYTES % (AUTO) 3.5 % (21-51); MEAN CORPUSCULAR HEMOGLOBIN 31.4 PG (27.0-31.0); MEAN CORPUSCULAR HGB CONC 33.4 g/dL (33.0-36.5); MEAN CORPUSCULAR VOLUME 94.3 FL (78-98); MEAN PLATELET VOLUME 7.4 FL (7.4-10.4); MONOCYTES # (AUTO) 1.5 X10'3 (0-0.9); MONOCYTES % (AUTO) 7.3 % (2-12); NEUTROPHILS # (AUTO) 17.6 X10'3 (1.8-7.7); NEUTROPHILS % (AUTO) 89.2 % (42-75); PLATELET COUNT 243 X10'3 (140-440); RED BLOOD COUNT 3.62 X10'6 (4.70-6.10); RED CELL DISTRIBUTION WIDTH 14.4 % (11.5-14.5); WHITE BLOOD COUNT 19.8 X10'3 (4.5-11.0)
[2019-08-13 05:23] LABS: ALANINE AMINOTRANSFERASE 18 U/L (12-78); ALBUMIN 2.6 G/DL (3.4-5.0); ALBUMIN/GLOBULIN RATIO 0.8 (1.1-1.5); ALKALINE PHOSPHATASE 36 IU/L (46-116); ANION GAP 5 (8-16); ASPARTATE AMINO TRANSFERASE 18 U/L (10-37); BILIRUBIN,TOTAL 0.4 MG/DL (0.1-1.0); BLOOD UREA NITROGEN 23 MG/DL (7-18); BUN/CREATININE RATIO 17.4 (5.4-32.0); CALCIUM 8.4 MG/DL (8.5-10.1); CHLORIDE 110 MMOL/L (99-107); CREATININE 1.32 MG/DL (0.60-1.10); GLUCOSE 134 MG/DL (70-104); MAGNESIUM 1.5 MG/DL (1.5-2.4); POTASSIUM 4.4 MMOL/L (3.5-5.1); SODIUM 142 MMOL/L (135-145); TOTAL CARBON DIOXIDE 27.4 MMOL/L (24-32); TOTAL PROTEIN 5.8 G/DL (6.4-8.2); eGFR 53 ML/MIN
[2019-08-13] MEDS: normal saline 1000ml 1,000 ML IV SCH ×2 (05:33→17:10)
[2019-08-13 06:00] VITALS: BP 141/69
--- NOTE | 2019-08-13 06:00 | NUR ---
Patient in room PCU 3016. I have received report from RENA Dozier and had the opportunity to ask questions and assume patient care.
--- NOTE | 2019-08-13 06:05 | NUR ---
Problems reprioritized. Patient report given, questions answered & plan of care reviewed with RENA Ng.
[2019-08-13 06:44] LABS: PLATELET ESTIMATE NORMAL; TOTAL CELLS COUNTED 100
[2019-08-13] MEDS: budesonide 0.5mg/2ml UD nebule IH SCH ×2 (07:08→19:52)
[2019-08-13] MEDS: ipratropium/albuterol 3ml nebule NEB SCH ×4 (07:08→19:52)
[2019-08-13] MEDS: CefTRIAXone/D5W-Rocephin 1gm 50 ML IV SCH (07:33)
[2019-08-13] MEDS: sacubitril/valsartan 24mg-26mg tablet PO SCH ×2 (07:34→19:26)
[2019-08-13] MEDS: enoxaparin 40mg/0.4ml syringe SUBCUT SCH (07:34)
[2019-08-13] MEDS: metoprolol succinate 25mg (24-HOUR) SR. Tablet PO SCH (07:35)
[2019-08-13] MEDS: lactobacillus rhamnosus 10,000 MMU CELLS/CAPSULE PO SCH ×2 (07:35→19:26)
[2019-08-13] MEDS: pantoprazole 40mg Tablet.DR PO SCH (07:35)
[2019-08-13] MEDS: aspirin 81mg tab.chew PO SCH (07:35)
[2019-08-13] MEDS: DOXYCYCLINE 100MG CAPSULE PO SCH (07:36)
[2019-08-13] MEDS: K and/or MAG REPLACEMENT MC SCH ×2 (08:00→18:54)
[2019-08-13] MEDS ORDERED: vancomycin inj 1,000 MG in normal saline 250ml IV soln 250 ML IV ONE (08:30)
[2019-08-13] MEDS ORDERED: iohexol 300mg/ml 100ml inj. ONE (09:41)
[2019-08-13 11:00] VITALS: BP 109/61
[2019-08-13] MEDS: azithromycin/NS 500mg/250ml 250 ML IV SCH (13:04)
[2019-08-13 14:15] LABS: BASOPHILS % (AUTO) 0.2 % (0-1); EOSINOPHILS % (AUTO) 0 % (0-6); HEMATOCRIT 35.2 % (42.0-52.0); HEMOGLOBIN 11.4 g/dl (14.0-17.9); LYMPHOCYTES # (AUTO) 0.4 X10'3 (1.1-4.8); LYMPHOCYTES % (AUTO) 1.9 % (21-51); MEAN CORPUSCULAR HEMOGLOBIN 30.6 PG (27.0-31.0); MEAN CORPUSCULAR HGB CONC 32.4 g/dL (33.0-36.5); MEAN CORPUSCULAR VOLUME 94.4 FL (78-98); MEAN PLATELET VOLUME 7.5 FL (7.4-10.4); MONOCYTES # (AUTO) 1.5 X10'3 (0-0.9); MONOCYTES % (AUTO) 8.1 % (2-12); NEUTROPHILS # (AUTO) 16.4 X10'3 (1.8-7.7); NEUTROPHILS % (AUTO) 89.8 % (42-75); PLATELET COUNT 241 X10'3 (140-440); RED BLOOD COUNT 3.73 X10'6 (4.70-6.10); RED CELL DISTRIBUTION WIDTH 14.3 % (11.5-14.5); WHITE BLOOD COUNT 18.3 X10'3 (4.5-11.0)
[2019-08-13 15:00] VITALS: BP 128/56
[2019-08-13 18:00] VITALS: BP 131/54
--- NOTE | 2019-08-13 18:19 | NUR ---
Problems reprioritized. Patient report given, questions answered & plan of care reviewed with RENA Cobian.
--- NOTE | 2019-08-13 18:23 | NUR ---
Patient in room PCU 3016. I have received report from RENA Ng and had the opportunity to ask questions and assume patient care.
[2019-08-13] MEDS: atorvastatin 20mg tablet PO SCH (21:03)
[2019-08-13] MEDS: montelukast 10mg tablet PO SCH (21:03)
[2019-08-13 22:00] VITALS: BP 142/80
[2019-08-14] MEDS: normal saline 1000ml 1,000 ML IV SCH ×2 (01:12→12:24)
[2019-08-14 02:00] VITALS: BP 136/74
[2019-08-14 06:00] VITALS: BP 136/85
[2019-08-14 06:16] LABS: BASOPHILS % (AUTO) 0.1 % (0-1); EOSINOPHILS % (AUTO) 0.1 % (0-6); HEMATOCRIT 31.6 % (42.0-52.0); HEMOGLOBIN 10.5 g/dl (14.0-17.9); LYMPHOCYTES # (AUTO) 0.8 X10'3 (1.1-4.8); LYMPHOCYTES % (AUTO) 5.3 % (21-51); MEAN CORPUSCULAR HEMOGLOBIN 31.2 PG (27.0-31.0); MEAN CORPUSCULAR HGB CONC 33.1 g/dL (33.0-36.5); MEAN CORPUSCULAR VOLUME 94.4 FL (78-98); MEAN PLATELET VOLUME 7.6 FL (7.4-10.4); MONOCYTES # (AUTO) 1.2 X10'3 (0-0.9); MONOCYTES % (AUTO) 7.9 % (2-12); NEUTROPHILS # (AUTO) 13.1 X10'3 (1.8-7.7); NEUTROPHILS % (AUTO) 86.6 % (42-75); PLATELET COUNT 222 X10'3 (140-440); RED BLOOD COUNT 3.35 X10'6 (4.70-6.10); RED CELL DISTRIBUTION WIDTH 14.3 % (11.5-14.5); WHITE BLOOD COUNT 15.1 X10'3 (4.5-11.0)
--- NOTE | 2019-08-14 06:26 | NUR ---
Problems reprioritized. Patient report given, questions answered & plan of care reviewed with Kylee Jain RN.
--- NOTE | 2019-08-14 06:31 | NUR ---
Patient in room PCU 3016. I have received report from RENA Cobian and had the opportunity to ask questions and assume patient care. Patient currently resting in bed, denies complaints, bed locked and low, call light in reach, no acute distress, will continue to monitor.
[2019-08-14 06:43] LABS: ALANINE AMINOTRANSFERASE 18 U/L (12-78); ALBUMIN 2.4 G/DL (3.4-5.0); ALBUMIN/GLOBULIN RATIO 0.7 (1.1-1.5); ALKALINE PHOSPHATASE 54 IU/L (46-116); ANION GAP 8 (8-16); ASPARTATE AMINO TRANSFERASE 17 U/L (10-37); BILIRUBIN,TOTAL 0.3 MG/DL (0.1-1.0); BLOOD UREA NITROGEN 30 MG/DL (7-18); BUN/CREATININE RATIO 21.9 (5.4-32.0); CALCIUM 8.3 MG/DL (8.5-10.1); CHLORIDE 108 MMOL/L (99-107); CREATININE 1.37 MG/DL (0.60-1.10); GLUCOSE 113 MG/DL (70-104); MAGNESIUM 1.6 MG/DL (1.5-2.4); POTASSIUM 4.2 MMOL/L (3.5-5.1); SODIUM 140 MMOL/L (135-145); TOTAL CARBON DIOXIDE 24.2 MMOL/L (24-32); TOTAL PROTEIN 5.8 G/DL (6.4-8.2); eGFR 51 ML/MIN
[2019-08-14] MEDS: sacubitril/valsartan 24mg-26mg tablet PO SCH ×2 (07:23→19:45)
[2019-08-14] MEDS: pantoprazole 40mg Tablet.DR PO SCH (07:23)
[2019-08-14] MEDS: aspirin 81mg tab.chew PO SCH (07:23)
[2019-08-14] MEDS: lactobacillus rhamnosus 10,000 MMU CELLS/CAPSULE PO SCH ×2 (07:24→19:45)
[2019-08-14] MEDS: metoprolol succinate 25mg (24-HOUR) SR. Tablet PO SCH (07:24)
[2019-08-14] MEDS: CefTRIAXone/D5W-Rocephin 1gm 50 ML IV SCH (07:24)
[2019-08-14] MEDS: enoxaparin 40mg/0.4ml syringe SUBCUT SCH (07:27)
[2019-08-14] MEDS: ipratropium/albuterol 3ml nebule NEB SCH ×4 (07:38→19:26)
[2019-08-14] MEDS: budesonide 0.5mg/2ml UD nebule IH SCH ×2 (07:38→19:26)
[2019-08-14] MEDS: K and/or MAG REPLACEMENT MC SCH ×2 (08:00→19:47)
[2019-08-14] MEDS: azithromycin/NS 500mg/250ml 250 ML IV SCH (08:19)
[2019-08-14 11:00] VITALS: BP 124/62
[2019-08-14 15:00] VITALS: BP 158/74
--- NOTE | 2019-08-14 18:26 | NUR ---
Problems reprioritized. Patient report given, questions answered & plan of care reviewed with RENA Lara.
[2019-08-14 19:00] VITALS: BP 158/74
[2019-08-14] MEDS: docusate sod 100mg capsule PO SCH (19:45)
[2019-08-14 23:00] VITALS: BP 155/81
[2019-08-14] MEDS: montelukast 10mg tablet PO SCH (23:18)
[2019-08-14] MEDS: atorvastatin 20mg tablet PO SCH (23:18)
[2019-08-15] MEDS: normal saline 1000ml 1,000 ML IV SCH (02:21)
[2019-08-15 03:00] VITALS: BP 136/78
[2019-08-15 06:03] LABS: BASOPHILS % (AUTO) 0.1 % (0-1); EOSINOPHILS # (AUTO) 0.1 X10'3 (0-0.9); EOSINOPHILS % (AUTO) 0.7 % (0-6); HEMATOCRIT 32.2 % (42.0-52.0); HEMOGLOBIN 10.7 g/dl (14.0-17.9); LYMPHOCYTES # (AUTO) 0.9 X10'3 (1.1-4.8); LYMPHOCYTES % (AUTO) 8.7 % (21-51); MEAN CORPUSCULAR HGB CONC 33.2 g/dL (33.0-36.5); MEAN CORPUSCULAR VOLUME 93.4 FL (78-98); MEAN PLATELET VOLUME 7.6 FL (7.4-10.4); MONOCYTES # (AUTO) 0.8 X10'3 (0-0.9); MONOCYTES % (AUTO) 7.9 % (2-12); NEUTROPHILS # (AUTO) 8.4 X10'3 (1.8-7.7); NEUTROPHILS % (AUTO) 82.6 % (42-75); PLATELET COUNT 262 X10'3 (140-440); RED BLOOD COUNT 3.44 X10'6 (4.70-6.10); RED CELL DISTRIBUTION WIDTH 14.2 % (11.5-14.5); WHITE BLOOD COUNT 10.2 X10'3 (4.5-11.0)
--- NOTE | 2019-08-15 06:25 | NUR ---
Patient in room PCU 3016A. I have received report from Marco CHASE and had the opportunity to ask questions and assume patient care.
[2019-08-15 06:30] VITALS: BP 160/73
[2019-08-15 06:33] LABS: ALANINE AMINOTRANSFERASE 19 U/L (12-78); ALBUMIN 2.3 G/DL (3.4-5.0); ALBUMIN/GLOBULIN RATIO 0.6 (1.1-1.5); ALKALINE PHOSPHATASE 53 IU/L (46-116); ANION GAP 7 (8-16); ASPARTATE AMINO TRANSFERASE 16 U/L (10-37); BILIRUBIN,TOTAL 0.4 MG/DL (0.1-1.0); BLOOD UREA NITROGEN 21 MG/DL (7-18); BUN/CREATININE RATIO 16.4 (5.4-32.0); CALCIUM 8.3 MG/DL (8.5-10.1); CHLORIDE 110 MMOL/L (99-107); CREATININE 1.28 MG/DL (0.60-1.10); GLUCOSE 95 MG/DL (70-104); MAGNESIUM 1.7 MG/DL (1.5-2.4); SODIUM 144 MMOL/L (135-145); TOTAL CARBON DIOXIDE 26.8 MMOL/L (24-32); TOTAL PROTEIN 6.2 G/DL (6.4-8.2); eGFR 55 ML/MIN
[2019-08-15] MEDS: ipratropium/albuterol 3ml nebule NEB SCH ×2 (06:53→10:30)
[2019-08-15] MEDS: budesonide 0.5mg/2ml UD nebule IH SCH (06:53)
--- NOTE | 2019-08-15 06:59 | NUR ---
Problems reprioritized. Patient report given, questions answered & plan of care reviewed with Manju CHASE
[2019-08-15] MEDS: CefTRIAXone/D5W-Rocephin 1gm 50 ML IV SCH (07:39)
[2019-08-15] MEDS: lactobacillus rhamnosus 10,000 MMU CELLS/CAPSULE PO SCH (07:40)
[2019-08-15] MEDS: docusate sod 100mg capsule PO SCH (07:40)
[2019-08-15] MEDS: pantoprazole 40mg Tablet.DR PO SCH (07:40)
[2019-08-15] MEDS: metoprolol succinate 25mg (24-HOUR) SR. Tablet PO SCH (07:40)
[2019-08-15] MEDS: aspirin 81mg tab.chew PO SCH (07:40)
[2019-08-15] MEDS: enoxaparin 40mg/0.4ml syringe SUBCUT SCH (07:40)
[2019-08-15] MEDS: sacubitril/valsartan 24mg-26mg tablet PO SCH (07:40)
[2019-08-15] MEDS: K and/or MAG REPLACEMENT MC SCH (08:00)
[2019-08-15] MEDS: azithromycin/NS 500mg/250ml 250 ML IV SCH (08:18)
[2019-08-15] MEDS ORDERED: LEVO500T2 PO ×2 (10:20→12:40)
[2019-08-15] MEDS ORDERED: FURO20TA4 PO (10:21)
[2019-08-15 11:00] VITALS: BP 134/69
--- NOTE | 2019-08-15 11:56 | NUR ---
O2 Sat at rest on room air:___% If below 89%: Recovery O2 Sat at rest on ___LPM:___%:___% via (mask/nasal cannula, etc..) No further documentation is necessary. If O2 Sat did not drop below 89% on room air,ambulate patient on room air. O2 Sat while ambulating on room air:_86__% Recovery O2 Sat while ambulating on __2_LPM:__92_% No further documentation is necessary. If patient does not drop below 89% while ambulating, he/she does not qualify for home O2.
--- NOTE | 2019-08-15 14:05 | NUR ---
Per MD, patient stable for discharge home. Pt qualified for portable O2 by RN and delivered to patient. Spoke to MD to make aware that Procalcitonin was increased to 20.62 from 14.02; Md said to continue with discharge and patient will be going home on PO Levaquin. MD originally ordered 5 tabs of Levaquin but changed to 10 tabs-- already were called into pharmacy so Pharmacist said that patient can come in for the additional 5 once he is almost done with the first 5 tabs. Discharge packet and medications educated to patient, and all questions answered. Patient has appt with Dr Warren on Friday, 08/19. As it is Friday and unable to make appts today, patient will call for PCP appt as well. IV removed and tele monitor removed, and all belongings sent with patient. Patient escorted from hospital via wheelchair accompanied by staff and driven home by in private vehicle.
--- NOTE | 2019-08-17 15:19 | NUR ---
Case Management DC follow up: spoke to pt spouse, [place] via telephone: reports:pt"doing okay, no worsening symptoms". status post-SOB Dx: bilat PNE: Denies acute/persistent CP, emergent general pain, emergent SOB, resp distress, NV, vertigo, syncope, GRACIA, general/concerning bruising, bleeding, fever, diaphoreses, confusion. Verbalizes understanding of s/s that would warrant 9-11/ER visit for further evaluation. Verbalizes understanding of current and/or new Rx; taking as ordered, no ase noted r/t polypharmacy. Verbalizes compliance w/DC aftercare. Acknowledges need to schedule/keep follow up appts w/PCP/Herrera/pt agrees to call to schedule ,Web Analyst/Briana awaiting call back to schedule/when pt able to do breath test/CT scan of chest 2-3 mon. Cardiolotist/Nilson/pt agrees to call to schedule. All questions/concerns addressed and answered at DC; Verbalizes understanding of post status after-care compliance. No further questions at this time.
== END 2019-08-15 14:05 | disposition home or self-care (01) | DRG 194 ==
LOC: ER 07:58 → ED HOLD 09:25 → EDBEDREQSVC 11:52 → PCU 3S 12:42
PROVIDERS: ADMIT Family Medicine; ATTEND Internal Medicine
PROC: BW241ZZ Computerized Tomography (CT Scan) of Chest and Abdomen using Low Osmolar Contrast (ICD-10-PCS; principal; 2019-08-13)
DX: J18.9 Pneumonia, unspecified organism (principal); I13.0 Hypertensive heart and chronic kidney disease with heart failure and stage 1 through stage 4 chronic kidney disease, or unspecified chronic kidney disease; I50.22 Chronic systolic (congestive) heart failure; N17.9 Acute kidney failure, unspecified; N18.4 Chronic kidney disease, stage 4 (severe); I42.9 Cardiomyopathy, unspecified; J96.10 Chronic respiratory failure, unspecified whether with hypoxia or hypercapnia; D64.9 Anemia, unspecified; I25.10 Atherosclerotic heart disease of native coronary artery without angina pectoris; Z80.3 Family history of malignant neoplasm of breast; Z80.42 Family history of malignant neoplasm of prostate; Z87.891 Personal history of nicotine dependence; Z95.810 Presence of automatic (implantable) cardiac defibrillator; Z99.81 Dependence on supplemental oxygen; Z88.2 Allergy status to sulfonamides; Z88.1 Allergy status to other antibiotic agents; Z91.030 Bee allergy status; Z98.52 Vasectomy status
CPT/HCPCS: 36415; 71045; 71260; 80053; 81001; 83605; 83735; 83880; 84145; 85025; 87040; 87070; 87077; 87081; 87186; 93005; 94640; 94668; 94760; 96365; 96375; 99285; G0378; J0456; J0696; J1100; J1650; J3370; J7030; J7050; J7626; Q9967

== ENCOUNTER 2020-03-12 16:29 | Emergency (ER) | payer MEDICARE, BC ==
[~2020-03-12] VITALS: Ht 180.3 cm; Wt 95.5 kg
[~2020-03-12 16:29] MED LIST changes: -ADV50250 INH; -CARV-49 PO; -CARV-50 PO; +FLUT1BLS10 INH; +LEVO500T2 PO; +METO-539 PO; -SILD100T PO; -TIOT18CA3 INH
[2020-03-12 17:57] LABS: BASOPHILS % (AUTO) 0.2 % (0-1); EOSINOPHILS % (AUTO) 0 % (0-6); HEMATOCRIT 34.1 % (42.0-52.0); HEMOGLOBIN 11.6 g/dl (14.0-17.9); LYMPHOCYTES # (AUTO) 0.4 X10'3 (1.1-4.8); LYMPHOCYTES % (AUTO) 6.1 % (21-51); MEAN CORPUSCULAR HEMOGLOBIN 31.4 PG (27.0-31.0); MEAN CORPUSCULAR VOLUME 92.5 FL (78-98); MEAN PLATELET VOLUME 7.8 FL (7.4-10.4); MONOCYTES # (AUTO) 0.7 X10'3 (0-0.9); MONOCYTES % (AUTO) 11.7 % (2-12); NEUTROPHILS # (AUTO) 4.7 X10'3 (1.8-7.7); PLATELET COUNT 195 X10'3 (140-440); RED BLOOD COUNT 3.69 X10'6 (4.70-6.10); RED CELL DISTRIBUTION WIDTH 14.1 % (11.5-14.5); WHITE BLOOD COUNT 5.8 X10'3 (4.5-11.0)
[2020-03-12 18:09] LABS: ALANINE AMINOTRANSFERASE 30 U/L (12-78); ALBUMIN 2.9 G/DL (3.4-5.0); ALBUMIN/GLOBULIN RATIO 0.8 (1.1-1.5); ALKALINE PHOSPHATASE 60 IU/L (46-116); ANION GAP 8 (8-16); ASPARTATE AMINO TRANSFERASE 32 U/L (10-37); BILIRUBIN,TOTAL 0.4 MG/DL (0.1-1.0); BLOOD UREA NITROGEN 26 MG/DL (7-18); BUN/CREATININE RATIO 12.9 (5.4-32.0); CALCIUM 8.3 MG/DL (8.5-10.1); CHLORIDE 106 MMOL/L (99-107); CREATININE 2.02 MG/DL (0.60-1.10); GLUCOSE 124 MG/DL (70-104); POTASSIUM 4.1 MMOL/L (3.5-5.1); SODIUM 139 MMOL/L (135-145); TOTAL CARBON DIOXIDE 24.8 MMOL/L (24-32); TOTAL PROTEIN 6.4 G/DL (6.4-8.2); eGFR 33 ML/MIN
[2020-03-12] MEDS ORDERED: DOXYCYCLINE 100MG CAPSULE PO STA (18:33)
[2020-03-12] MEDS ORDERED: normal saline 1000ML IV soln IVB ONE (18:35)
--- NOTE | 2020-03-12 18:56 | NUR ---
PT SATTING 94% ON ROOM AIR WITHOUT DIFFICULTY. PT STATES THAT HIS "ALLERGY" TO CLINDAMYCIN WAS ACTUALLY FROM BEING TREATED WITH GOUT MEDICATION THAT WHEN TAKEN WITH CLINDA WOULD CAUSE AN ADVERSE REACTION. PT NOT CURRENTLY BEING TREATED FOR GOUT.
[2020-03-12 19:21] LABS: TROPONIN I < 0.04 NG/ML (0.0-0.05)
[2020-03-12] MEDS ORDERED: PRED20TA PO (20:06)
[2020-03-12 20:34] VITALS: BP 158/77
== END 2020-03-12 20:39 | disposition home or self-care (01) ==
LOC: ER 16:30
DX: R05 Cough (principal); Z20.828 Contact with and (suspected) exposure to other viral communicable diseases; R06.02 Shortness of breath; R53.1 Weakness; I11.0 Hypertensive heart disease with heart failure; I50.9 Heart failure, unspecified; I25.10 Atherosclerotic heart disease of native coronary artery without angina pectoris; J44.9 Chronic obstructive pulmonary disease, unspecified; Z95.0 Presence of cardiac pacemaker; Z88.1 Allergy status to other antibiotic agents; Z88.2 Allergy status to sulfonamides; Z91.030 Bee allergy status; Z79.82 Long term (current) use of aspirin; Z79.2 Long term (current) use of antibiotics; Z79.899 Other long term (current) drug therapy
CPT/HCPCS: 36415; 71045; 80053; 83605; 84145; 84484; 85025; 87040; 87635; 93005; 96360; 99285; J7030

== ENCOUNTER 2022-09-05 08:30 | Day surgery (SDC) | payer MEDICARE, BC ==
[~2022-09-05] VITALS: Ht 180.3 cm; Wt 92.2 kg
[~2022-09-05 08:30] MED LIST changes: +ALBU8.5H17 IH; -ALBU8.5H8 IH; +MONT-40 PO; -MONT10TA26 PO
[2022-09-05 09:00] VITALS: BP 159/72
[2022-09-05] MEDS ORDERED: fentaNYL/PF 50MCG/1 ML 2ML syringe ONE (09:04)
[2022-09-05] MEDS ORDERED: LIDOcaine Viscous 15ml cup ONE (09:05)
[2022-09-05] MEDS ORDERED: MIDAZolam 1 MG/ML 5ML VIAL ONE (09:05)
[2022-09-05 10:30] VITALS: BP 111/67
[2022-09-05 10:40] VITALS: BP 103/61
[2022-09-05 10:50] VITALS: BP 107/60
[2022-09-05 11:00] VITALS: BP 117/61
== END 2022-09-05 11:05 | disposition home or self-care (01) ==
LOC: GI LAB 08:30
PROVIDERS: ATTEND Internal Medicine Gastroenterology
DX: Z12.11 Encounter for screening for malignant neoplasm of colon (principal); R12 Heartburn; D12.3 Benign neoplasm of transverse colon; D12.4 Benign neoplasm of descending colon; K57.30 Diverticulosis of large intestine without perforation or abscess without bleeding; K22.89 Other specified disease of esophagus; K29.50 Unspecified chronic gastritis without bleeding; J44.9 Chronic obstructive pulmonary disease, unspecified; I10 Essential (primary) hypertension; Z99.81 Dependence on supplemental oxygen; Z95.0 Presence of cardiac pacemaker; Z87.891 Personal history of nicotine dependence; Z72.89 Other problems related to lifestyle; Z79.899 Other long term (current) drug therapy
CPT/HCPCS: 43239; 45385; 99153; C1889; G0500; J2250; J3010; J7030; Z7512; 99152; A4620